=== PATIENT | male | born 1945 ===

== ENCOUNTER → 2020-11-24 | Outpatient (CLI) | payer SELFPAY ==
[2020-11-24 15:14] LABS: ALBUMIN 3.7 gm/dL (3.5-5.0); BILIRUBIN,TOTAL 0.4 mg/dL (0.0-1.0); CALCIUM 8.2 mg/dL (8.4-10.2); CREATININE, serum 2.49 (0.66-1.25); POTASSIUM 4.6 mmol/L (3.4-5.0); TOTAL PROTEIN 6.7 gm/dL (6.4-8.2)
== END ==
LOC: ZCOL.LAB 14:45
PROVIDERS: Internal Medicine Cardiovascular Disease
DX: N18.31 Chronic kidney disease, stage 3a (principal); Z94.4 Liver transplant status

== ENCOUNTER → 2021-02-02 | Outpatient (CLI) | payer SELFPAY ==
[2021-02-02 14:05] LABS: CALCIUM 8.2 mg/dL (8.4-10.2); CREATININE, serum 2.36 mg/dL (0.72-1.25); POTASSIUM 4.9 mmol/L (3.5-4.5)
== END ==
LOC: ZCOL.LAB 13:30
PROVIDERS: Internal Medicine Cardiovascular Disease
DX: N18.2 Chronic kidney disease, stage 2 (mild) (principal)